=== PATIENT | male | born 1990 | race Caucasian/White ===

== ENCOUNTER 2018-01-01 20:30 | Emergency (ER) | payer BC ==
[~2018-01-01] VITALS: Ht 177.8 cm; Wt 63.5 kg
[2018-01-01 21:04] VITALS: BP 122/88
[2018-01-01] MEDS ORDERED: Solu-MEDROL 125mg Inj IVP ONE (21:15)
[2018-01-01] MEDS ORDERED: DiphenhydrAMINE 50mg/ml Inj IVP ONE (21:15)
--- NOTE | 2018-01-01 21:18 | Emergency Room Report ---
History of Present Illness General Chief Complaint: Allergic Reaction Source: Patient Present Illness HPI Is a 27-year-old male with history of ulcerative colitis recurrent surgery. He also has a history of multiple medication. No real allergy to food. He presents with chief complaint of allergic reaction after eating a sandwich at [employer]. He said that he felt his tongue swelling. He took half of Benadryl. He was improved. No fever or chills no nausea no vomiting. He said his symptoms seem to plateau. This occurred about 3 hours ago. Allergies: Coded Allergies: AMOXICILLIN (Verified Allergy, Unknown, 01/01/18) CEPHALEXIN (Verified Allergy, Unknown, 01/01/18) CIPROFLOXACIN (Verified Allergy, Unknown, 01/01/18) PENICILLINS (Verified Allergy, Unknown, 01/01/18) Patient History Past Medical History: see triage record, old chart reviewed Past Surgical History: other Pertinent Family History: none Social History: Denies: smoking Immunizations: other Reviewed Nursing Documentation: PMH: Agreed, PSxH: Agreed Nursing Documentation-PMH Hx Gastrointestinal Problems: Yes - ULCERATIVE COLITIS,COLON SURGRY Review of Systems Eye: Denies: eye pain, blurred vision ENT: Denies: ear pain, nose congestion, throat swelling Respiratory: Denies: cough, shortness of breath Cardiovascular: Denies: chest pain, palpitations Gastrointestinal: Denies: abdominal pain, diarrhea, nausea, vomiting Musculoskeletal: Denies: back pain, joint pain Skin: Denies: rash Neurological: Denies: headache, numbness Endocrine: Denies: increased thirst, increased urine Hematologic/Lymphatic: Denies: easy bruising All Other Systems: negative except mentioned in HPI Physical Exam Vital Signs Date Time Temp Pulse Resp B/P (MAP) Pulse Ox O2 Delivery O2 Flow Rate FiO2 01/01/18 20:50 98.1 74 16 128/88 99 Room Air vitals normal Sp02 EP Interpretation: reviewed, normal General Appearance: well appearing, no apparent distress, alert Head: normocephalic, atraumatic Eyes: bilateral eye PERRL, bilateral eye EOMI ENT: hearing grossly normal, normal pharynx, other - No stridor. Minimal edema to the tongue on Right Neck: full range of motion, supple, no meningismus Respiratory: chest non-tender, lungs clear, normal breath sounds Cardiovascular #1: regular rate, rhythm, no murmur Gastrointestinal: normal bowel sounds, non tender, no mass, no organomegaly, no bruit, non-distended Musculoskeletal: back normal, gait/station normal, normal range of motion Psychiatric: mood/affect normal Skin: warm/dry Medical Decision Making Diagnostic Impression: Primary Impression: Allergic reaction ER Course Patient with an allergic reaction to food. Better now. Saw. No anaphylaxis. We'll discharge home. Last Vital Signs Date Time Temp Pulse Resp B/P (MAP) Pulse Ox O2 Delivery O2 Flow Rate FiO2 01/01/18 21:04 98.1 74 16 122/88 100 Room Air Status: improved Disposition: HOME, SELF-CARE Condition: Improved Scripts Prednisone* (PREDNISONE*) 20 Mg Tablet 40 MG ORAL DAILY, #6 TAB Prov: BRIAN BAPTISTE M.D. 01/01/18 Diphenhydramine Hcl* (BENADRYL*) 25 Mg Capsule 50 MG ORAL Q6H Y for Itching, #30 CAP Prov: BRIAN BAPTISTE M.D. 01/01/18 Epinephrine (Epipen 2-Andrea) 0.3 Mg/0.3 Ml Auto.injct 0.3 MG IM ONCE, #1 EA Prov: BRIAN BAPTISTE M.D. 01/01/18 Patient Instructions: Food Allergy Additional Instructions: Followup with your DrLisa in 7 days. You will need referral to see an sap bods developer for skin testing. Return if worse. BRIAN BAPTISTE M.D. Jan 01, 2018 21:18
[2018-01-01] MEDS ORDERED: PREDNISONE20 MG ORAL (22:33)
[2018-01-01] MEDS ORDERED: BENADRYL25 MG ORAL (22:33)
[2018-01-01] MEDS ORDERED: EPIPEN 2-P0.3 MG/0.3 IM (22:33)
[2018-01-01 22:40] VITALS: BP 122/88
== END 2018-01-01 22:40 | disposition home or self-care (01) ==
LOC: EMR 21:09
DX: T78.40XA Allergy, unspecified, initial encounter (principal); X58.XXXA Exposure to other specified factors, initial encounter; R60.0 Localized edema; Z88.0 Allergy status to penicillin
CPT/HCPCS: 96374; 96375; 99284; J1200; J2930